=== PATIENT | female | born 1995 | race American Indian/Alaskan Native ===

== ENCOUNTER 2017-03-17 23:14 | Emergency (ER) | payer BC ==
[2017-03-18] MEDS ORDERED: MOTRIN PO ONE (00:02)
[2017-03-18 07:50] VITALS: BP 116/80
--- NOTE | 2017-03-18 07:59 | Emergency Department Report ---
Minor Respiratory - HPI Chief Complaint: Sore Throat Stated Complaint: SORE THROAT Time Seen by Provider: 03/18/17 07:25 Duration: 1 Day Pain Location: Throat Severity: severe (10) Minor Respiratory: Yes Rhinorrhea (nasal congestion), Yes Sore Throat (denies any drooling), Yes Able to Tolerate Fluids, No Ear Pain, No Cough, No Sick Contacts, No Hemoptysis, No Chest Pain, No Shortness of Breath, No Fever Other History: Patient reports that she has sore throat since yesterday. She denies any drooling or difficulty swallowing. Denies any nausea or vomiting. Denies any fever or chills. Denies any abdominal or back pain. Denies any neck pain or stiffness. She does report nasal congestion and drainage. Denies any coughing, shortness of breath or chest pain. Pain is 9 out of 10 to throat worse with swallowing. ED Review of Systems ROS: Stated complaint: SORE THROAT Other details as noted in HPI Comment: All other systems reviewed and negative Constitutional: no symptoms reported Eyes: denies: eye pain, eye discharge ENT: throat pain, congestion. denies: ear pain Respiratory: no symptoms reported Cardiovascular: denies: chest pain, palpitations, dyspnea on exertion, edema, syncope, paroxysmal nocturnal dyspnea Gastrointestinal: denies: abdominal pain, nausea, vomiting, diarrhea Genitourinary: denies: urgency, dysuria, frequency, hematuria, discharge, abnormal menses, dyspareunia Skin: denies: rash Neurological: denies: headache, weakness, numbness, paresthesias, confusion, abnormal gait, vertigo ED Past Medical Hx - Past Medical History Previous Medical History?: No - Surgical History Past Surgical History?: No - Family History Family history: no significant - Social History Smoking Status: Never Smoker Substance Use Type: None, Marijuana - Medications Home Medications: Home Medications Medication Instructions Recorded Confirmed Last Taken Type Ibuprofen [Motrin 800 MG tab] 800 mg PO Q8HR PRN #30 tablet 03/21/15 Unknown Rx Amoxicillin [Amoxicillin TAB] 875 mg PO BID 10 Days #20 tablet 03/18/17 Unknown Rx Cetirizine HCl [ZyrTEC] 10 mg PO QAM 14 Days #14 capsule 03/18/17 Unknown Rx Ibuprofen [Motrin] 600 mg PO Q8H PRN 4 Days #12 tablet 03/18/17 Unknown Rx Minor Respiratory Exam - Exam General: Vital signs noted. No distress. Alert and acting appropriately. This is a 21-year-old female well-nourished well-developed in no acute distress. HEENT: Yes Pharyngeal Erythema ( Uvula is midline and oral airways patent), Yes Moist Mucous Membranes (tongue is normal), Yes Rhinorrhea (nasal congestion) , No Pharyngeal Exudates (bilateral tonsils enlarged with erythema at 2+), No Conjuctival Injection, No Frontal Tenderness, No Maxillary Tenderness Ear: Neither TM Bulge (bilateral TM congested), Neither TM Erythema, Neither EAC Pain, Neither EAC Discharge Neck: Yes Adenopathy (anterior cervical,bilaterally) Lungs: Yes Good Air Exchange, No Wheezes, No Ronchi, No Stridor, No Cough, No Labored Respirations, No Retractions, No Use of Accessory Muscles, No Other Abnormal Lung Sounds Heart: Yes Regular (S1, S2. Mild tachycardia 104, regular rhythm. No murmur), No Murmur Abdomen: Yes Normal Bowel Sounds, No Tenderness (nontender to palpate in all quadrants: No guarding or rebound tenderness. No CVA tenderness), No Peritoneal Signs Skin: Yes Edema, No Rash Neurologic: Alert and oriented, no deficits. Alert and oriented 3, GCS is 15 and speech is clear. Musculoskeletal: Unremarkable. Extremity: No clubbing, cyanosis or edema. +2 pulses all extremities. No neurovascular compromise ED Course Vital Signs 03/17/17 03/18/17 23:55 07:49 Temperature 98.9 F 98.6 F Pulse Rate 104 H 91 H Respiratory 16 20 Rate Blood Pressure 119/86 Blood Pressure 116/80 [Right] O2 Sat by Pulse 100 98 Oximetry - Reevaluation(s) Reevaluation #1: 03/18/17 08:05 She received Motrin 600 mg in emergency room for sore throat which she voiced relief of. ED Medical Decision Making - Lab Data Strep test is negative and cultures are pending - Medical Decision Making ED course: Pt here reports sore throat, nasal congestion and runny nose times one day. Physical findings were enlarged tonsils with pharyngeal and tonsillar erythema. Nasal mucosa congested with clear drainage. Patient with tonsillitis /pharyngitis and upper respiratory tract infection. I discussed diagnosis and treatment plan the patient and she voiced understanding. Patient discharged home with her family in stable condition. Patient is given Motrin 600 mg emergency room for sore throat and she was discharged home with prescription for Motrin, Zyrtec and amoxicillin. Critical care attestation.: If time is entered above; I have spent that time in minutes in the direct care of this critically ill patient, excluding procedure time. ED Disposition Clinical Impression: Tonsillitis, Upper respiratory infection, acute Pharyngitis Qualifiers: Pharyngitis/tonsillitis etiology: unspecified etiology Qualified Code(s): J02.9 - Acute pharyngitis, unspecified Disposition: TO HOME OR SELFCARE Is pt being admited?: No Does the pt Need Aspirin: No Condition: Stable Instructions: Pharyngitis (ED), Tonsillitis (ED), Upper Respiratory Infection ( ED) Additional Instructions: increase her fluid intake to 2 L of fluid per day. Floow up with Primary care physician in 2-3 days and if you do not have a primary care physician follow-up at the [facility] Take all medication as prescribed Prescriptions: Amoxicillin [Amoxicillin TAB] 875 mg PO BID 10 Days #20 tablet Cetirizine HCl [ZyrTEC] 10 mg PO QAM 14 Days #14 capsule Ibuprofen [Motrin] 600 mg PO Q8H PRN 4 Days #12 tablet PRN Reason: Pain Referrals: PRIMARY CARE,MD [Primary Care Provider] - 2-3 Days [facility] [Outside] - 2-3 Days Forms: Accompanied Note, Work/School Release Form(ED)
== END 2017-03-18 08:18 | disposition home or self-care (01) ==
LOC: ED 23:14
DX: J03.90 Acute tonsillitis, unspecified (principal); J06.9 Acute upper respiratory infection, unspecified; J02.9 Acute pharyngitis, unspecified; F12.10 Cannabis abuse, uncomplicated
CPT/HCPCS: 87116; 87430; 99283